=== PATIENT | female | born 1975 | race Caucasian/White ===

== ENCOUNTER → 2017-10-10 | Outpatient (CLI) | payer BC ==
--- NOTE | 2017-10-10 17:05 | US ---
EXAMINATION TYPE: US transvaginal DATE OF EXAM: 10/10/2017 COMPARISON: NONE CLINICAL HISTORY: Z01.419 Routine gynecological examination. Right pelvic pain for 4 years. Tubal lig ation TECHNIQUE: Transvaginal (TV). Date of LMP: 09/28/17 EXAM MEASUREMENTS: Uterus: 7.5 x 3.6 x 4.5 cm Endometrial Stripe: 0.9 cm Right Ovary: 3.0 x 2.5 x 2.2 cm Left Ovary: 2.7 x 1.3 x 1.4 cm 1. Uterus: Anteverted Nabothian cysts 2. Endometrium: appears wnl 3. Right Ovary: cystic area = 2.4 x 1.8 x 2.2cm 4. Left Ovary: appears wnl as visualized 5. Bilateral Adnexa: prominent vascularity left adnexa 6. Posterior cul-de-sac: wnl IMPRESSION: Simple right ovarian cyst. No solid adnexal mass.
== END | disposition home or self-care (01) ==
LOC: RADUSWWP 16:13
PROVIDERS: ATTEND Obstetrics & Gynecology
DX: N83.201 Unspecified ovarian cyst, right side (principal)
CPT/HCPCS: 76830

== ENCOUNTER → 2020-11-08 | Outpatient (CLI) | payer BC ==
--- NOTE | 2020-11-08 07:54 | CT ---
EXAMINATION TYPE: CT lumbar spine wo con DATE OF EXAM: 11/08/2020 7:22 AM COMPARISON: None HISTORY: Low back pain w/o sciatica CT DLP: 830 mGycm Automated exposure control for dose reduction was used. Unenhanced CT of the lumbar spine was performed. Bone and soft tissue window settings are submitted as well as coronal and sagittal reconstructions. L1-L2: Normal disc space height. No disc herniation protrusion or central stenosis. No facet joint arthropathy. No evidence for foraminal encroachment. L2-L3: Normal disc space height. No disc herniation protrusion or central stenosis. No facet joint arthropathy. No evidence for foraminal encroachment. L3-L4: No significant degenerative disc space narrowing. Mild left paracentral disc bulge mildly effa suzanne the ventral thecal sac. Mild left foraminal encroachment. No herniation or central stenosis. L4-L5: Mild degenerative disc space narrowing. Broad-based posterior disc bulge greatest posterior ce ntrally and to the right. No evidence for central stenosis or lateral recess stenosis. Foramina are p atent bilaterally. L5-S1: Mild degenerative disc space narrowing. Broad-based disc bulge greatest posterior centrally an d to the left where there may be mild left lateral recess stenosis and mild foraminal encroachment. N o central stenosis or disc herniation. IMPRESSION: Disc bulging as noted above
== END | disposition home or self-care (01) ==
LOC: RADCTMAIN 07:02
PROVIDERS: ATTEND Family Medicine
DX: M51.27 Other intervertebral disc displacement, lumbosacral region (principal); M51.37 Other intervertebral disc degeneration, lumbosacral region
CPT/HCPCS: 72131

== ENCOUNTER 2023-06-03 14:23 | Emergency (ER) | payer BC ==
--- NOTE | 2023-06-03 15:09 | ED ---
ENT HPI - General Source: patient, RN notes reviewed Mode of arrival: ambulatory Limitations: no limitations <Shayy Lr - Last Filed: 06/03/23 15:08> <Denilson Dailey - Last Filed: 06/03/23 17:57> - General Chief complaint: ENT Stated complaint: Abcess in throat-sent by Dr Chester History of Present Illness Initial comments: Quick note 47-year-old female chief complaint of difficulty breathing and swallowing. Patient went to her primary care this morning where they need that she has a abscess in the back of her throat and told her to come to the emergency room for further intervention. (Shayy Lr) 47-year-old female with sore throat and diagnosed peritonsillar abscess by primary care. She states that her symptoms have progressed over the past 1 week. She denies fever. She denies history of diabetes. She does have difficulty swallowing secondary to pain. (Denilson Dailey) - Related Data Previous Rx's Medication Instructions Recorded Amoxic-Pot Clav 875-125Mg 1 tab PO Q12HR 10 Days #20 tab 06/03/23 [Augmentin 875-125] dexAMETHasone [Decadron] 0 mg PO DIRECTED #12 tab 06/03/23 Allergies Allergy/AdvReac Type Severity Reaction Status Date / Time No Known Allergies Allergy Verified 11/13/17 17:05 Review of Systems ROS Other: All systems not noted in ROS Statement are negative. <Shayy Lr - Last Filed: 06/03/23 15:08> ROS Other: All systems not noted in ROS Statement are negative. <Denilson Dailey - Last Filed: 06/03/23 17:57> ROS Statement: Those systems with pertinent positive or pertinent negative responses have been documented in the HPI. Past Medical History Past Medical History: No Reported History History of Any Multi-Drug Resistant Organisms: None Reported Past Surgical History: Orthopedic Surgery, Tubal Ligation Additional Past Surgical History / Comment(s): R hand Past Psychological History: No Psychological Hx Reported Past Alcohol Use History: Occasional Past Drug Use History: Marijuana <Shayy Lr - Last Filed: 06/03/23 15:08> General Exam Limitations: no limitations <Shayy Lr - Last Filed: 06/03/23 15:08> General appearance: alert, in no apparent distress Head exam: Present: atraumatic, normocephalic Eye exam: Present: normal appearance, PERRL ENT exam: Absent: normal oropharynx (Right peritonsillar abscess) Respiratory exam: Present: normal lung sounds bilaterally. Absent: respiratory distress, wheezes Cardiovascular Exam: Present: regular rate, normal rhythm GI/Abdominal exam: Present: soft. Absent: distended, tenderness Extremities exam: Present: normal inspection, normal capillary refill Neurological exam: Present: alert, oriented X3, CN II-XII intact. Absent: motor sensory deficit Psychiatric exam: Present: normal affect, normal mood Skin exam: Present: warm, dry, intact <Denilson Dailey - Last Filed: 06/03/23 17:57> - General Exam Comments Initial Comments: Visual Physical Exam Vital signs reviewed General: Well-appearing, nontoxic, no acute distress. Head: Normocephalic, atraumatic Eyes: PERRLA, EOMI ENT: Airway patent Chest: Nonlabored breathing Skin: No visual rash, normal skin tone Neuro: Alert and oriented 3 Musculoskeletal: No gross abnormalities (Shayy Lr) Course Vital Signs 06/03/23 14:57 Temperature 97.9 F Pulse Rate 83 Respiratory 16 Rate Blood Pressure 120/79 O2 Sat by Pulse 99 Oximetry Procedures - Incision & Drainage Consent Obtained: written consent Indication: Peritonsillar Site: oral Anesthetic Used: lidocaine 1% Amount (mLs): 2 Sterile Field Used?: No Ultrasound used: No Needle Aspiration Performed?: Yes Irrigation Performed?: No I&D Drainage Obtained: Pus Insertion of drain: No Culture Obtained?: No Patient Tolerated Procedure: well ( approximately 6 cc of ana pus obtained) <Denilson Dailey - Last Filed: 06/03/23 17:57> Medical Decision Making <Shayy Lr - Last Filed: 06/03/23 15:08> - Lab Data Result diagrams: 06/03/23 15:35 06/03/23 15:35 <Denilson Dailey - Last Filed: 06/03/23 17:57> - Medical Decision Making I completed the quick note portion of this chart signed Shayy Lr PA-C (Shayy Lr) Was pt. sent in by a medical professional or institution ([facility], [employer], urgent care, hospital, or [place] health care facility...) When possible be specific @ -[Sent in by primary care with suspected peritonsillar abscess Did you speak to anyone other than the patient for history (EMS, parent, family, police, friend...)? What history was obtained from this source @ -No Did you review nursing and triage notes (agree or disagree)? Why? @ -I reviewed and agree with nursing and triage notes Were old charts reviewed (outside hosp., previous admission, EMS record, old EKG, old radiological studies, urgent care reports/EKG's, [place] health care facility records)? Report findings @ -No old charts were reviewed Differential Diagnosis (chest pain, altered mental status, abdominal pain women, abdominal pain men, vaginal bleeding, weakness, fever, dyspnea, syncope, headache, dizziness, GI bleed, back pain, seizure, CVA, palpatations, mental health, musculoskeletal)? @ -Pharyngeal mass, peritonsillar abscess, strep pharyngitis EKG interpreted by me (3pts min.). @ -As above X-rays interpreted by me (1pt min.). @ -None done CT interpreted by me (1pt min.). @ -CT confirming peritonsillar abscess on the right U/S interpreted by me (1pt. min.). @ -None done What testing was considered but not performed or refused? (CT, X-rays, U/S, labs)? Why? @ -None What meds were considered but not given or refused? Why? @ -None Did you discuss the management of the patient with other professionals (professionals i.e. [facility], [employer], lab, RT, psych nurse, social science research assistant, concrete technician, teacher, intelligence support officer, case packer and sealer)? Give summary @ -No Was smoking cessation discussed for >3mins.? @ -No Was critical care preformed (if so, how long)? @ -No Were there social determinants of health that impacted care today? How? (Homelessness, low income, unemployed, alcoholism, drug addiction, transportation, low edu. Level, literacy, decrease access to med. care, nursing home, rehab)? @ -No Was there de-escalation of care discussed even if they declined (Discuss DNR or withdrawal of care, Hospice)? DNR status @ -No What co-morbidities impacted this encounter? (DM, HTN, Smoking, COPD, CAD, Cancer, CVA, ARF, Chemo, Hep., AIDS, mental health diagnosis, sleep apnea, morbid obesity)? @ -None Was patient admitted / discharged? Hospital course, mention meds given and route, prescriptions, significant lab abnormalities, going to OR and other pertinent info. @ -[ho 47-year-old otherwise healthy female with 7 days of sore throat, no fever. Patient has a large peritonsillar abscess on exam. CT confirms diagnosis. She has a mild leukocytosis of 12, otherwise normal laboratory testing. I did obtain consent and drained this abscess with needle aspiration obtaining approximately 6 cc of ana pus. Patient started on Decadron and Unasyn in the emergency department. She will be placed on Augmentin and Decadron taper that ENT prefers. She will follow closely with Dr. Tegan nelson for ENT. Undiagnosed new problem with uncertain prognosis? @ -No Drug Therapy requiring intensive monitoring for toxicity (Heparin, Nitro, Insulin, Cardizem)? @ -No Were any procedures done? @ -Yes incision and drainage Diagnosis/symptom? @ -Peritonsillar abscess Acute, or Chronic, or Acute on Chronic? @ -[Acute Uncomplicated (without systemic symptoms) or Complicated (systemic symptoms)? @ -Complicated Side effects of treatment? @ -No Exacerbation, Progression, or Severe Exacerbation? @ -No Poses a threat to life or bodily function? How? (Chest pain, [place], [place], pneumonia, PE, COPD, DKA, ARF, appy, cholecystitis, CVA, Diverticulitis, Homicidal, Suicidal, threat to staff... and all critical care pts) @Low risk at this time (Denilson Dailey) - Lab Data Lab Results 06/03/23 06/03/23 Range/Units 15:35 15:35 WBC 12.4 H (3.8-10.6) k/uL RBC 4.37 (3.80-5.40) m/uL Hgb 13.4 (11.4-16.0) gm/dL Hct 41.1 (34.0-46.0) % MCV 94.1 (80.0-100.0) fL MCH 30.7 (25.0-35.0) pg MCHC 32.7 (31.0-37.0) g/dL RDW 12.3 (11.5-15.5) % Plt Count 413 (150-450) k/uL MPV 7.2 Neutrophils % 81 % Lymphocytes % 12 % Monocytes % 5 % Eosinophils % 1 % Basophils % 0 % Neutrophils # 10.0 H (1.3-7.7) k/uL Lymphocytes # 1.5 (1.0-4.8) k/uL Monocytes # 0.6 (0-1.0) k/uL Eosinophils # 0.1 (0-0.7) k/uL Basophils # 0.0 (0-0.2) k/uL Sodium 138 (137-145) mmol/L Potassium 3.3 L (3.5-5.1) mmol/L Chloride 99 (98-107) mmol/L Carbon Dioxide 29 (22-30) mmol/L Anion Gap 10 mmol/L BUN 9 (7-17) mg/dL Creatinine 0.56 (0.52-1.04) mg/dL Est GFR (CKD-EPI)AfAm >90 (>60 ml/min/1.73 sqM) Est GFR (CKD-EPI)NonAf >90 (>60 ml/min/1.73 sqM) Glucose 96 (74-99) mg/dL Calcium 9.7 (8.4-10.2) mg/dL Total Bilirubin 0.5 (0.2-1.3) mg/dL AST 49 H (14-36) U/L ALT 75 H (4-34) U/L Alkaline Phosphatase 116 (38-126) U/L Total Protein 7.5 (6.3-8.2) g/dL Albumin 4.3 (3.5-5.0) g/dL Disposition <Shayy Lr - Last Filed: 06/03/23 15:08> Is patient prescribed a controlled substance at d/c from ED?: No Time of Disposition: 17:56 <Denilson aDiley - Last Filed: 06/03/23 17:57> Clinical Impression: Peritonsillar abscess Disposition: HOME SELF-CARE Condition: Fair Instructions (If sedation given, give patient instructions): Peritonsillar Abscess (ED) Prescriptions: Amoxic-Pot Clav 875-125Mg [Augmentin 875-125] 1 tab PO Q12HR 10 Days #20 tab dexAMETHasone [Decadron] 0 mg PO DIRECTED #12 tab Referrals: Keli Hsieh MD [Primary Care Provider] - 1-2 days William Javed MD [STAFF PHYSICIAN] - 1-2 days
[2023-06-03 15:57] LABS: Basophils % (A) 0 %; Eosinophils # (A) 0.1 k/uL (0-0.7); Eosinophils % (A) 1 %; HCT 41.1 % (34.0-46.0); HGB 13.4 gm/dL (11.4-16.0); Lymphocytes # (A) 1.5 k/uL (1.0-4.8); Lymphocytes % (A) 12 %; MCH 30.7 pg (25.0-35.0); MCHC 32.7 g/dL (31.0-37.0); MCV 94.1 fL (80.0-100.0); Mean Platelet Volume 7.2; Monocytes # (A) 0.6 k/uL (0-1.0); Monocytes % (A) 5 %; Neutrophils % (A) 81 %; Platelet Count 413 k/uL (150-450); RBC 4.37 m/uL (3.80-5.40); RDW 12.3 % (11.5-15.5); WBC 12.4 k/uL (3.8-10.6)
[2023-06-03 16:06] LABS: ALT 75 U/L (4-34); AST 49 U/L (14-36); African American GFR (CKD) >90 (>60 ml/min/1.73 sqM); Albumin 4.3 g/dL (3.5-5.0); Alkaline Phosphatase 116 U/L (38-126); Anion Gap 10 mmol/L; Blood Urea Nitrogen 9 mg/dL (7-17); Calcium 9.7 mg/dL (8.4-10.2); Carbon Dioxide 29 mmol/L (22-30); Chloride 99 mmol/L (98-107); Glucose 96 mg/dL (74-99); Non-African American GFR(CKD) >90 (>60 ml/min/1.73 sqM); Potassium 3.3 mmol/L (3.5-5.1); Sodium 138 mmol/L (137-145); Total Bilirubin 0.5 mg/dL (0.2-1.3); Total Protein 7.5 g/dL (6.3-8.2)
[2023-06-03] MEDS: LORazepam 2 MG/ML INJ IV STA (17:04)
[2023-06-03] MEDS: DEXAMETHASONE SOD PHOSPHATE 10 MG/ML 1 ML VIAL IV STA (17:04)
[2023-06-03] MEDS: AMPICILLIN-SULBACTAM 3 GM in SODIUM CHLORIDE 0.9% 100 ML IVPB STA (17:04)
[2023-06-03] MEDS: BENZOCAINE SPRAY 1 CAN TOPICAL STA (17:06)
[2023-06-03] MEDS: LIDOCAINE 1% INJ 10MG/ML (20 ML MDV) SQ ONE (17:06)
[2023-06-03] MEDS: SODIUM CHLORIDE 0.9% 1,000 ML IV ONE (17:06)
--- NOTE | 2023-06-03 17:13 | CT ---
EXAMINATION TYPE: CT soft tissue neck w con DATE OF EXAM: 06/03/2023 4:57 PM COMPARISON: None HISTORY: Retropharyngeal swelling Technique: Automated exposure control for dose reduction was used. Multiple axial images are obtained from the thoracic inlet to the skull base finding uneventful menst ruation nonionic IV contrast material. FINDINGS: The thyroid gland is not enlarged. There is a 9 mm thyroid nodule in thyroid ultrasound on a nonemerg ent basis is recommended. The larynx including the cricoid, thyroid and arytenoid cartilages as well as the true and false voca l cords are normal and symmetric. There is a 3.2 cm mass centered in the region of the right tonsil with central density slightly hypod ense compared to the surrounding normal soft tissue. This consistent with an abscess with neoplasm n ot excluded. The submandibular glands and parotid glands are normal symmetric. The great vessels of the neck are normal and there is no adenopathy. IMPRESSION: Right tonsillar mass consistent with abscess with neoplasm not excluded.
[2023-06-03 19:33] VITALS: BP 122/74; PULSE 80; RESP 18; TEMP 97.7
== END 2023-06-03 19:13 | disposition home or self-care (01) ==
LOC: EC 14:23
DX: J36 Peritonsillar abscess (principal)
CPT/HCPCS: 36415; 80053; 85025; 70491; 99284; 96365; 96375 ×2; 96361; 42700; J2060; J1100; J2001; J0295; Q9967